=== PATIENT | female | born 1945 | race African-American/Black ===

== ENCOUNTER 2019-01-13 08:35 | Day surgery (SDC) | payer OTHER ==
[2019-01-13 09:59] VITALS: TEMP 97.7
[2019-01-13 12:41] VITALS: BP 96/59; PULSE 70
== END 2019-01-13 13:20 | disposition home or self-care (01) ==
LOC: JRADIR 08:35
PROVIDERS: ATTEND Nurse Practitioner
PROC: 0WBH3ZX Excision of Retroperitoneum, Percutaneous Approach, Diagnostic (ICD-10-PCS; principal; 2019-01-13)
DX: D48.3 Neoplasm of uncertain behavior of retroperitoneum (principal)
CPT/HCPCS: 49180; 76380-TC

== ENCOUNTER 2022-06-21 04:38 | Day surgery (SDC) | payer OTHER ==
[2022-06-20 07:22] VITALS: BMI 29.2
[2022-06-21 11:41] VITALS: TEMP 97.8
[2022-06-21 11:54] VITALS: PULSE 76
[2022-06-21 12:22] VITALS: BP 99/62; RESP 18
== END 2022-06-21 12:55 | disposition home or self-care (01) ==
LOC: JASU-ENDO 04:38
PROVIDERS: ATTEND Internal Medicine
PROC: 0DBP8ZX Excision of Rectum, Via Natural or Artificial Opening Endoscopic, Diagnostic (ICD-10-PCS; 2022-06-21)
PROC: 0DBN8ZX Excision of Sigmoid Colon, Via Natural or Artificial Opening Endoscopic, Diagnostic (ICD-10-PCS; 2022-06-21)
PROC: 0DBK8ZX Excision of Ascending Colon, Via Natural or Artificial Opening Endoscopic, Diagnostic (ICD-10-PCS; principal; 2022-06-21 10:00)
DX: Z12.11 Encounter for screening for malignant neoplasm of colon (principal); D12.2 Benign neoplasm of ascending colon; D12.8 Benign neoplasm of rectum; K63.5 Polyp of colon; K64.8 Other hemorrhoids; I11.0 Hypertensive heart disease with heart failure; I50.9 Heart failure, unspecified; E11.9 Type 2 diabetes mellitus without complications; Z79.84 Long term (current) use of oral hypoglycemic drugs; Z79.899 Other long term (current) drug therapy
CPT/HCPCS: 82962; 88305-TC

== ENCOUNTER 2024-01-15 15:00 | Emergency (ER) | payer OTHER ==
[2024-01-15 15:07] VITALS: BP 111/69; PULSE 81; RESP 17; TEMP 98; BMI 27.3
[2024-01-15] MEDS ORDERED: LIDOCAINE 4% PATCH TP ONE (17:09)
[2024-01-15] MEDS ORDERED: METHOCARBAMOL 500 MG TABLET ONE (17:10)
[2024-01-15] MEDS ORDERED: ACETAMINOPHEN 500 MG TABLET (FP) ONE (17:10)
[2024-01-15] MEDS: ACETAMINOPHEN 325 MG TABLET (FP) PO ONE (17:24)
[2024-01-15] MEDS: METHOCARBAMOL 500 MG TABLET PO ONE (17:24)
[2024-01-15 17:34] LABS: BASO % 0.7 % (0-2.0); EOS % 2.4 % (0-4.5); HEMATOCRIT 43.3 % (32.4-45.2); LYMPH % 30.1 % (8-40); MCH 28.2 pg (25.7-33.7); MCHC 32.4 g/dl (32.0-36.0); MEAN CELL VOLUME 87.2 fl (80-96); MEAN PLT VOLUME 7.9 fl (7.5-11.1); MONO % 10.4 % (3.8-10.2); NEUT % 56.4 % (42.8-82.8); PLATELET COUNT 163 10^3/uL (134-434); RBC 4.96 M/mm3 (3.60-5.2); RDW 17.1 % (11.6-15.6); WHITE BLOOD COUNT 5.8 K/mm3 (4.0-10.0)
[2024-01-15 17:36] LABS: INR 1.38 (0.83-1.09); PROTHROMBIN TIME (PATIENT) 15.4 SEC (9.7-13.0)
[2024-01-15] MEDS: LIDOCAINE 4% PATCH TP ONE (17:37)
[2024-01-15 17:50] LABS: POTASSIUM 4.9 mmol/L (3.5-5.1)
[2024-01-15 17:52] LABS: BLOOD UREA NITROGEN 26.7 mg/dL (7-18); CALCIUM 9.1 mg/dL (8.5-10.1)
[2024-01-15 17:53] LABS: ALBUMIN 3.4 g/dl (3.4-5.0)
[2024-01-15 17:57] LABS: BILIRUBIN,TOTAL 0.6 mg/dL (0.2-1); TOT PROT 7.2 g/dl (6.4-8.2)
[2024-01-15 18:16] LABS: CREATININE 1.1 mg/dL (0.55-1.3)
[2024-01-15] MEDS: LIDOCAINE 5% TOPICAL PATCH TP ONE (19:12)
[2024-01-15] MEDS ORDERED: LIDOCAINE PATCH REMOVAL MC SCH (22:00)
== END 2024-01-15 21:28 | disposition home or self-care (01) ==
LOC: JER 15:00
DX: M54.6 Pain in thoracic spine (principal); R10.84 Generalized abdominal pain; M54.2 Cervicalgia; V49.40XA Driver injured in collision with unspecified motor vehicles in traffic accident, initial encounter; Y92.410 Unspecified street and highway as the place of occurrence of the external cause
CPT/HCPCS: 36415; 70450-TC; 71250-TC; 72125-TC; 72128-TC; 72131-TC; 74176-TC; 80053; 85025; 85610; 85730; 86850; 86900; 86901; 93005; 93010; 99285-25